=== PATIENT | male | born 1945 | race Caucasian/White ===

== ENCOUNTER 2017-02-07 11:34 | Outpatient (CLI) | payer MEDICARE, BC ==
--- NOTE | 2017-02-07 15:28 | XRAY Report ---
TWO VIEW CHEST: 02/07/2017 CLINICAL INDICATION: Chronic cough. FINDINGS: Frontal and lateral views of the chest demonstrate a normal cardiac silhouette. There is a left lower lobe infiltrate present. No effusion is seen. A small hiatal hernia is noted. Linear scar ring or atelectasis is seen at the right base. No pneumothorax. IMPRESSION: LEFT LOWER LOBE INFILTRATE. JOB #: [id number] EXT JOB #:[id number]
== END 2017-02-07 11:35 | disposition home or self-care (01) ==
LOC: DI.S 11:34
PROVIDERS: ATTEND Family Medicine
DX: R91.8 Other nonspecific abnormal finding of lung field (principal)
CPT/HCPCS: 71020

== ENCOUNTER 2017-02-13 10:24 | Outpatient (CLI) | payer MEDICARE, BC ==
--- NOTE | 2017-02-13 15:36 | XRAY Report ---
TWO-VIEW CHEST: 02/13/2017 CLINICAL INDICATION: Followup left lower lobe infiltrate. COMPARISON: 02/07/2017 FINDINGS: Frontal and lateral views of the chest demonstrate a normal cardiac silhouette. Hiatal he rnia is again noted. Left lower lobe infiltrate is improving. No effusion or pneumothorax is seen. IMPRESSION: IMPROVING LEFT LOWER LOBE INFILTRATE. JOB #: [id number] EXT JOB #:[id number]
== END 2017-02-13 10:25 | disposition home or self-care (01) ==
LOC: DI.S 10:24
PROVIDERS: ATTEND Family Medicine
DX: J18.9 Pneumonia, unspecified organism (principal)
CPT/HCPCS: 71020

== ENCOUNTER 2017-03-15 14:27 | Outpatient (CLI) | payer MEDICARE, BC ==
--- NOTE | 2017-03-15 16:59 | Ultrasound Report ---
EXAM: AORTIC DOPPLER ULTRASOUND EXAM DATE: 03/15/2017 02:50 PM. CLINICAL HISTORY: Abdominal aortic aneurysm screening. COMPARISON: None. TECHNIQUE: Real-time sonographic imaging of retroperitoneal vascular structures, including color-flow , Doppler flow and spectral analysis was performed by the thoracic medicine physician. Multiple senior outside sales representative static images were saved for review. FINDINGS: Aorta: Proximal: Sagittal AP: 2.7 cm. Mid: Transverse: 2.3 x 2.2 cm. Distal: Transverse: 2.0 X 2.1 cm. Caliber WNL: Yes. Plaque visualized: Yes. Iliacs: Right Iliac: Transverse: 1.3 x 1.2 cm. Left Iliac: Transverse: 1.1 X 1.3 cm. IMPRESSION: No aneurysm of the abdominal aorta or visualized common iliac arteries. [facility] Referring Provider Line: [phone] SITE ID: [id number]
== END 2017-03-15 14:28 | disposition home or self-care (01) ==
LOC: DI 14:27
PROVIDERS: ATTEND Internal Medicine
DX: Z13.6 Encounter for screening for cardiovascular disorders (principal)
CPT/HCPCS: 76706